=== PATIENT | female | born 1980 | race Caucasian/White ===

== ENCOUNTER → 2016-05-31 | Outpatient (CLI) | payer MEDICARE, OTHER ==
[2016-05-31 07:18] LABS: BASO % 0.6 % (0.0-1.0); EOS # 0.1 K/mm3 (0.0-0.50); EOS % 2.8 % (0.0-3.0); LARGE UNSTAINED CELL # 0.1 K/mm3 (0.0-0.4); LARGE UNSTAINED CELL % 2.7 % (0.0-4.0); LYMPH # 2.3 K/mm3 (1.5-4.5); MEAN CORPUSCULAR HEMOGLOBIN 29.6 pg (27.0-33.0); MEAN CORPUSCULAR VOLUME 87.1 fl (80.0-96.0); MONO # 0.3 K/mm3 (0.0-0.8); MONO % 6.7 % (0.0-5.0); NEUTROPHILS % 42.3 % (36.0-66.0); PLATELET COUNT, AUTOMATED 239 k/mm3 (150-450); RED CELL DISTRIBUTION WIDTH 11.7 % (11.5-14.5); WHITE BLOOD COUNT 4.8 K/mm3 (4.0-10.0)
[2016-05-31 08:06] LABS: ALBUMIN 3.8 GM/DL (3.2-5.2); ALBUMIN/GLOBULIN RATIO 1.27 (1.00-1.93); ALKALINE PHOSPHATASE 56 U/L (45-117); ALT/SGPT 37 U/L (12-78); ANION GAP 11 MEQ/L (8-16); AST/SGOT 17 U/L (15-37); BILIRUBIN,TOTAL 0.5 MG/DL (0.2-1.0); BLOOD UREA NITROGEN 11 MG/DL (7-18); CALCIUM LEVEL 9.2 MG/DL (8.5-10.1); CARBON DIOXIDE LEVEL 21 MEQ/L (21-32); CHLORIDE LEVEL 109 MEQ/L (98-107); CHOLESTEROL LEVEL 172 MG/DL (<200); CREATININE FOR GFR 0.76 MG/DL (0.55-1.02); FREE T4 1.18 NG/DL (0.76-1.46); GLOMERULAR FILTRATION RATE > 60.0 (>60); GLUCOSE, FASTING 90 MG/DL (70-105); SODIUM LEVEL 141 MEQ/L (136-145); TOTAL PROTEIN 6.8 GM/DL (6.4-8.2); TRIGLYCERIDES LEVEL 65 MG/DL (<150)
== END ==
LOC: M LAB 06:28
PROVIDERS: ATTEND Physician Assistant Medical
DX: Z00.00 Encounter for general adult medical examination without abnormal findings (principal); Z83.42 Family history of familial hypercholesterolemia; Z13.220 Encounter for screening for lipoid disorders

== ENCOUNTER → 2018-01-01 | Outpatient (CLI) | payer OTHER ==
[2018-01-01 15:33] LABS: BASO % 0.3 % (0.0-1.0); EOS # 0.1 10^3/uL (0.0-0.50); HEMATOCRIT 34.7 % (36.0-47.0); HEMOGLOBIN 11.5 g/dl (12.0-15.5); IMMATURE GRANULOCYTE % 0.1 % (0-3.0); LYMPH # 1.9 10^3/uL (1.5-4.5); LYMPH % 27.6 % (24.0-44.0); MEAN CORPUSCULAR HEMOGLOBIN 29.6 pg (27.0-33.0); MEAN CORPUSCULAR HGB CONC 33.1 g/dl (32.0-36.5); MEAN CORPUSCULAR VOLUME 89.2 fl (80.0-96.0); MONO # 0.6 10^3/uL (0.0-0.8); MONO % 8.6 % (0.0-5.0); NEUTROPHILS # 4.2 10^3/uL (1.8-7.7); NEUTROPHILS % 62.4 % (36.0-66.0); PLATELET COUNT, AUTOMATED 274 10^3/uL (150-450); RED BLOOD COUNT 3.89 10^6/uL (4.00-5.40); RED CELL DISTRIBUTION WIDTH 11.9 % (11.5-14.5); WHITE BLOOD COUNT 6.8 10^3/uL (4.0-10.0)
[2018-01-01 17:40] LABS: CHLAMYDIA DNA AMPLIFICATION NEGATIVE (NEGATIVE); GC DNA AMPLIFICATION NEGATIVE (NEGATIVE)
[2018-01-02 10:43] LABS: HBsAg Prenatal NEGATIVE (NEGATIVE); HIV 1&2 SCREEN CENTAUR NEGATIVE (NEGATIVE); RUBELLA IgG QUALITATIVE IMMUNE (IMMUNE)
[2018-01-02 10:43] LABS: HEPATITIS C VIRUS ABY INDEX 0.1 INDEX (<0.8)
== END ==
LOC: M LAB 08:12
DX: Z34.81 Encounter for supervision of other normal pregnancy, first trimester (principal); Z3A.08 8 weeks gestation of pregnancy
CPT/HCPCS: 86762

== ENCOUNTER → 2018-02-13 | Outpatient (REF) | payer OTHER | LOC: M LAB REF 13:00 | PROVIDERS: ATTEND Advanced Practice Midwife | DX: Z34.82 Encounter for supervision of other normal pregnancy, second trimester (principal) ==

== ENCOUNTER → 2018-03-05 | Outpatient (CLI) | payer OTHER ==
--- NOTE | 2018-03-06 03:35 | REP ---
Clinical: Anatomical evaluation. Comparison: None . Findings: Examination demonstrates a single live intrauterine in breech presentation. motion is identified by technologist. Placenta is noted anterior fundal and grade grade 1 without evidence for placenta previa or abruption. Amniotic fluid volume is normal. Cervix measures 3.5 cm in length and appears closed. No evidence for nuchal cord. There is suggestion for the possibility of bicornuate uterus with diffuse possibly in the left cornua. Gestational age by LMP 19 weeks 2-day with ANA PAULA is 07/28/2018 . Gestational age by current measurements 18 weeks 6 days with ANA PAULA 2018. FHR equals 163 beats per minute. BPD 4.3 cm 19 weeks 1 day HC 15.7 cm 18 weeks 4 days AC 13.7 cm 19 weeks 1 day FL 3.0 cm 19 weeks 2 days HL 3.1 cm 20 weeks 1 day HC/AC ratio 1.15 Estimated weight 275 grams ( 40th percentile). Anatomical assessment demonstrates normal structures including cranium, choroid plexus, cavum, cerebellum/posterior fossa, facial features, lungs, four-chamber heart, diaphragm, stomach, cord insertion/three-vessel cord, kidneys/bladder, spine, and extremities. Limited evaluation of the facial profile and cardiac ventricular outflow tracts. Impression: 1. Single live intrauterine in breech presentation. 2. Suggestions for bicornuate uterus with fetus in the left cornua. 3. Limited evaluation of the facial profile and cardiac ventricular outflow tracts noted. Remainder of the examination is normal. Electronically Signed by Sumeet Castano MD 03/06/2018 03:27 A
== END ==
LOC: M SMT 09:31
PROVIDERS: ATTEND Obstetrics & Gynecology
DX: Z34.82 Encounter for supervision of other normal pregnancy, second trimester (principal); Z36.89 Encounter for other specified antenatal screening; Z3A.19 19 weeks gestation of pregnancy

== ENCOUNTER → 2018-03-27 | Outpatient (CLI) | payer OTHER ==
--- NOTE | 2018-03-27 10:23 | REP ---
OB ULTRASOUND: Real-time sonographic evaluation of the gravid uterus performed. There is a single living intrauterine gestation, estimated gestational age is 22 weeks 3 days. EDC 07/28/2018. Today's measurements indicate appropriate growth. BPD 50 mm 21 weeks 1 day, 17th percentile HC 190 mm 21 weeks 2 days, 17th percentile AC 174 mm 22 weeks 2 days, 49th percentile FL 38 mm 22 weeks 1 day, 44th percentile HC/AC ratio 1.09 within normal range. Estimated weight 4077 grams, 36th percentile. Cervix closed and measures 4 cm in length. heart rate 160 beats per minute. SEEN/GROSSLY UNREMARKABLE Lateral ventricles Yes Posterior fossa Yes Upper lip No Four-chamber heart Yes LVOT Yes RVOT No Stomach Yes Cord insertion Yes Three vessel cord Yes Kidneys Yes Bladder Yes Spine No position: Breech. Placenta: Anterior and grade I with no previa or abruption. Amniotic fluid: Within normal limits. Please note that the uterus appears to contain a septation raising the possibility of bicornuate or septate uterus. The fetus is on the left side of the uterus. Electronically Signed by Bryant Valles MD 03/27/2018 01:41 P
== END ==
LOC: M SMT 08:01
PROVIDERS: ATTEND Advanced Practice Midwife
DX: O09.512 Supervision of elderly primigravida, second trimester (principal); Z3A.22 22 weeks gestation of pregnancy

== ENCOUNTER → 2018-05-01 | Outpatient (CLI) | payer OTHER ==
[2018-05-01 13:30] LABS: HEMATOCRIT 31.8 % (36.0-47.0); HEMOGLOBIN 10.8 g/dl (12.0-15.5); MEAN CORPUSCULAR HEMOGLOBIN 29.8 pg (27.0-33.0); MEAN CORPUSCULAR VOLUME 87.6 fl (80.0-96.0); PLATELET COUNT, AUTOMATED 293 10^3/uL (150-450); RED BLOOD COUNT 3.63 10^6/uL (4.00-5.40); WHITE BLOOD COUNT 10.6 10^3/uL (4.0-10.0)
== END ==
LOC: M SMT 10:58
PROVIDERS: ATTEND Advanced Practice Midwife
DX: O34.02 Maternal care for unspecified congenital malformation of uterus, second trimester (principal)

== ENCOUNTER 2018-05-09 10:17 | Outpatient (CLI) | payer OTHER ==
[~2018-05-09] VITALS: Ht 162.6 cm; Wt 94.6 kg
[2018-05-09 10:34] VITALS: BP 130/72
[2018-05-09] MEDS ORDERED: DIFL150T PO (11:28)
[2018-05-09] MEDS ORDERED: FERR325T82 PO (11:28)
[2018-05-09] MEDS ORDERED: ZANTTAB PO (11:28)
[2018-05-09] MEDS ORDERED: PRENTAB9 PO (11:28)
[2018-05-09] MEDS ORDERED: MAGNESIUM *L&D* 4 GM/100 ML BAG (40MG/ML) (J3475) As Ordered ONE (12:04)
[2018-05-09] MEDS ORDERED: MAGNESIUM SULFATE 4% INJ 20GM/500ML (40MG/ML) (J3475) As Ordered ONE (12:04)
[2018-05-09] MEDS ORDERED: BETAMETHASONE SOLUSPAN 6MG/ML INJ 5ML (J0702) IM ONE (12:45)
[2018-05-09] MEDS ORDERED: AZITHROMYCIN 250 MG TAB PO ONE (12:45)
[2018-05-09 12:49] VITALS: BP 141/71
[2018-05-09] MEDS ORDERED: ceFAZolin SOD 1 GM in D5W MINI-BAG PLUS 50 ML IV SCH (13:00)
[2018-05-09 13:21] LABS: HEMATOCRIT 31.7 % (36.0-47.0); HEMOGLOBIN 10.9 g/dl (12.0-15.5); MEAN CORPUSCULAR HEMOGLOBIN 30.1 pg (27.0-33.0); MEAN CORPUSCULAR HGB CONC 34.4 g/dl (32.0-36.5); MEAN CORPUSCULAR VOLUME 87.6 fl (80.0-96.0); PLATELET COUNT, AUTOMATED 266 10^3/uL (150-450); RED BLOOD COUNT 3.62 10^6/uL (4.00-5.40); WHITE BLOOD COUNT 10.1 10^3/uL (4.0-10.0)
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
== END 2018-05-09 13:37 | disposition short-term general hospital (02) ==
LOC: M LDO 10:17
PROVIDERS: ATTEND Specialist
DX: O42.913 Preterm premature rupture of membranes, unspecified as to length of time between rupture and onset of labor, third trimester (principal); O32.1XX1 Maternal care for breech presentation, fetus 1; Z88.0 Allergy status to penicillin; Z88.5 Allergy status to narcotic agent; Z3A.28 28 weeks gestation of pregnancy
CPT/HCPCS: 59025; 76815; 85027; 86780; 86850; 86900; 86901; 96372; 96374; G0378; G0463; J0690; J0702

== ENCOUNTER → 2019-09-24 | Outpatient (REF) | payer OTHER ==
[~2019-09-24] MED LIST: DIFL150T PO; FERR325T82 PO; PRENTAB9 PO; ZANT150T40 PO
== END ==
LOC: M LAB REF 10:26
PROVIDERS: ATTEND Nurse Practitioner Family
DX: Z01.419 Encounter for gynecological examination (general) (routine) without abnormal findings (principal)

== ENCOUNTER → 2020-06-17 | Outpatient (CLI) | payer OTHER ==
[~2020-06-17] MED LIST changes: +BUPR450T PO; +BUSP10TA PO; +BUSP1TAB PO; +CETI-36 PO; +D3 M5000 PO; +SPIR100T3 PO; +VALA500T5 PO; +[UNRECOGNIZED DRUG - OTHER] PO
== END ==
LOC: M LABSMTC 10:19
PROVIDERS: ATTEND Anesthesiology
DX: Z01.818 Encounter for other preprocedural examination (principal); Z11.52 Encounter for screening for COVID-19

== ENCOUNTER 2020-06-22 10:21 | Day surgery (SDC) | payer OTHER ==
[~2020-06-22] VITALS: Ht 162.6 cm; Wt 75.2 kg
[~2020-06-22 10:21] MED LIST changes: +NS 1,000 ML IV ONE; +SEVOFLURANE INHAL SOLN 250 ML BTL As Ordered ONE
[2020-06-22] MEDS ORDERED: LIDOCAINE 2% 100MG/5ML SDV (FOR ANES.) As Ordered ONE (11:40)
[2020-06-22] MEDS ORDERED: propofoL 200 MG/20 ML VIAL As Ordered ONE (11:40)
--- NOTE | 2020-06-22 11:42 | ROOR ---
Patient Name: Christen Gaffney Procedure Date: 06/22/2020 11:21 AM Date of : 1980 Age: 40 Room: [facility] Gender: Female Note Status: Finalized Procedure: Colonoscopy Indications: Colon cancer screening in patient at increased risk: Family history of colorectal cancer in multiple 2nd degree relatives Providers: DO Rock Hogan MD: Marium Amador NP Requesting Provider: Medicines: Propofol per Anesthesia Complications: No immediate complications. Procedure: Pre-Anesthesia Assessment: - Prior to the procedure, a History and Physical was performed, and patient medications and allergies were reviewed. The patient is competent. The risks and benefits of the procedure and the sedation options and risks were discussed with the patient. All questions were answered and informed consent was obtained. Patient identification and proposed procedure were verified by the physician, the nurse, the cosmetic consultant and the greenhouse technician in the endoscopy suite. Mental Status Examination: alert and oriented. Airway Examination: normal oropharyngeal airway and neck mobility. Respiratory Examination: clear to auscultation. CV Examination: normal. Prophylactic Antibiotics: The patient does not require prophylactic antibiotics. Prior Anticoagulants: The patient has taken no previous anticoagulant or antiplatelet agents. ASA Grade Assessment: II - A patient with mild systemic disease. After reviewing the risks and benefits, the patient was deemed in satisfactory condition to undergo the procedure. The anesthesia plan was to use monitored anesthesia care (MAC). Immediately prior to administration of medications, the patient was re-assessed for adequacy to receive sedatives. The heart rate, respiratory rate, oxygen saturations, blood pressure, adequacy of pulmonary ventilation, and response to care were monitored throughout the procedure. The physical status of the patient was re-assessed after the procedure. The Colonoscope was introduced through the anus and advanced to the cecum, identified by appendiceal orifice and ileocecal valve. The colonoscopy was performed without difficulty. The patient tolerated the procedure well. Findings: Non-bleeding internal hemorrhoids were found during retroflexion. The hemorrhoids were Grade I (internal hemorrhoids that do not prolapse). A less than 5 mm polyp was found in the transverse colon. The polyp was hyperplastic. The polyp was removed with a jumbo cold forceps. Resection and retrieval were complete. Estimated blood loss was minimal. Impression: - Non-bleeding internal hemorrhoids. - One less than 5 mm polyp in the transverse colon, removed with a jumbo cold forceps. Resected and retrieved. Recommendation: - Patient has a contact number available for emergencies. The signs and symptoms of potential delayed complications were discussed with the patient. Return to normal activities tomorrow. Written discharge instructions were provided to the patient. - Await pathology results. - Repeat colonoscopy in 5-10 years for surveillance based on pathology results. - Return to my office at appointment to be scheduled. Procedure Code(s): --- Professional --- 90189, Colonoscopy, flexible; with biopsy, single or multiple Diagnosis Code(s): --- Professional --- Z80.0, Family history of malignant neoplasm of digestive organs K64.0, First degree hemorrhoids K63.5, Polyp of colon CPT copyright 2019 [employer]. All rights reserved. The codes documented in this report are preliminary and upon medical records coder review may be revised to meet current compliance requirements. Bryant Germain DO 06/22/2020 11:41:48 AM Electronically signed by Bryant Germain DO Number of Addenda: 0 Note Initiated On: 06/22/2020 11:21 AM Estimated Blood Loss: Estimated blood loss: none.
[2020-06-22 12:05] VITALS: BP 143/76
== END 2020-06-22 12:19 | disposition home or self-care (01) ==
LOC: M OPP 10:21
PROVIDERS: ATTEND Surgery
DX: Z12.11 Encounter for screening for malignant neoplasm of colon (principal); Z80.0 Family history of malignant neoplasm of digestive organs; K63.5 Polyp of colon; K64.0 First degree hemorrhoids; Z88.0 Allergy status to penicillin; Z88.5 Allergy status to narcotic agent

== ENCOUNTER → 2020-10-25 | Outpatient (CLI) | payer OTHER ==
[~2020-10-25] MED LIST changes: -NS 1,000 ML IV ONE; -SEVOFLURANE INHAL SOLN 250 ML BTL As Ordered ONE
[2020-10-25 08:59] LABS: ALBUMIN 3.5 GM/DL (3.2-5.2); ALT/SGPT 22 U/L (12-78); BILIRUBIN,TOTAL 0.3 MG/DL (0.2-1.0); BLOOD UREA NITROGEN 10 MG/DL (7-18); CALCIUM LEVEL 8.8 MG/DL (8.5-10.1); CARBON DIOXIDE LEVEL 25 MEQ/L (21-32); CHLORIDE LEVEL 109 MEQ/L (98-107); CHOLESTEROL LEVEL 182 MG/DL (<200); CHOLESTEROL RISK RATIO 3.137 (<5); CREATININE FOR GFR 0.75 MG/DL (0.55-1.30); FREE T4 1.09 NG/DL (0.76-1.46); GLOMERULAR FILTRATION RATE > 60.0 (>58); GLUCOSE, FASTING 82 MG/DL (70-100); HDL CHOLESTEROL 58 MG/DL (>40); LDL CHOLESTEROL 106 MG/DL (<100); NON-HDL-C 124 MG/DL; POTASSIUM SERUM 4.3 MEQ/L (3.5-5.1); SODIUM LEVEL 139 MEQ/L (136-145); TOTAL PROTEIN 6.7 GM/DL (6.4-8.2); TRIGLYCERIDES LEVEL 91 MG/DL (<150)
== END ==
LOC: M LAB 07:34
PROVIDERS: ATTEND Nurse Practitioner Family
DX: Z00.00 Encounter for general adult medical examination without abnormal findings (principal)

== ENCOUNTER → 2020-10-30 | Outpatient (REF) | payer OTHER | LOC: M LAB REF 19:11 | PROVIDERS: ATTEND Nurse Practitioner Family | DX: Z01.419 Encounter for gynecological examination (general) (routine) without abnormal findings (principal) ==

== ENCOUNTER → 2021-11-12 | Outpatient (REF) | payer OTHER | LOC: M LAB REF 17:46 | PROVIDERS: ATTEND Nurse Practitioner Family | DX: Z01.419 Encounter for gynecological examination (general) (routine) without abnormal findings (principal); Z12.4 Encounter for screening for malignant neoplasm of cervix ==

== ENCOUNTER → 2021-11-21 | Outpatient (CLI) | payer OTHER | LOC: M SOG 07:57 | PROVIDERS: ATTEND Orthopaedic Surgery | DX: M25.532 Pain in left wrist (principal); M25.531 Pain in right wrist ==

== ENCOUNTER → 2022-01-01 | Outpatient (CLI) | payer OTHER ==
[~2022-01-01] MED LIST changes: +ADDE10CA3 PO; +B-12100010 PO; +VITA500075 PO
== END ==
LOC: M LABSMTC 09:07
PROVIDERS: ATTEND Anesthesiology
DX: Z01.818 Encounter for other preprocedural examination (principal); Z11.52 Encounter for screening for COVID-19

== ENCOUNTER 2022-01-04 06:17 | Day surgery (SDC) | payer OTHER ==
[~2022-01-04] VITALS: Ht 162.6 cm; Wt 78.4 kg
[~2022-01-04 06:17] MED LIST changes: +ceFAZolin SOD 2 GM in IV 1 EA IV ONE
[2022-01-04] MEDS ORDERED: LR 1,000 ML IV SCH (06:45)
[2022-01-04] MEDS ORDERED: BUPIVACAINE/EPIN 0.5% 30 ML VIAL As Ordered ONE (07:16)
[2022-01-04] MEDS ORDERED: SCOPOLAMINE 1MG TRANSDERMAL PATCH TOP ONE (07:20)
[2022-01-04] MEDS ORDERED: KETOROLAC 60MG 2ML VIAL As Ordered ONE (07:22)
[2022-01-04] MEDS ORDERED: LIDOCAINE 2% 100MG/5ML SDV (FOR ANES.) As Ordered ONE (07:22)
[2022-01-04] MEDS ORDERED: propofoL 200 MG/20 ML VIAL As Ordered ONE ×2 (07:22→08:18)
[2022-01-04] MEDS ORDERED: MIDAZOLAM INJ 2MG/2ML VIAL (J2250 PER 1MG) As Ordered ONE (07:22)
[2022-01-04] MEDS ORDERED: ONDANSETRON 4MG 2ML VIAL As Ordered ONE (07:22)
[2022-01-04] MEDS ORDERED: dexameTHASONE 4 MG/ML 1ML VIAL (J1100 PER 1MG) As Ordered ONE (07:22)
[2022-01-04] MEDS ORDERED: fentaNYL 100 MCG/2 ML INJECTION As Ordered ONE (07:22)
[2022-01-04 08:40] VITALS: BP 114/58
== END 2022-01-04 08:47 | disposition home or self-care (01) ==
LOC: M SDC 06:17
PROVIDERS: ATTEND Orthopaedic Surgery
DX: G56.01 Carpal tunnel syndrome, right upper limb (principal); F90.9 Attention-deficit hyperactivity disorder, unspecified type; J45.909 Unspecified asthma, uncomplicated; F41.9 Anxiety disorder, unspecified; M51.9 Unspecified thoracic, thoracolumbar and lumbosacral intervertebral disc disorder; Z87.891 Personal history of nicotine dependence; Z79.899 Other long term (current) drug therapy; Z88.0 Allergy status to penicillin; Z88.5 Allergy status to narcotic agent
CPT/HCPCS: 29848; 81025; J0690; J1100; J1885; J2250; J2405; J3010

== ENCOUNTER → 2024-01-01 | Outpatient (CLI) | payer OTHER ==
[~2024-01-01] MED LIST changes: -BUPR450T PO; +BUPR450T4 PO; -ceFAZolin SOD 2 GM in IV 1 EA IV ONE
[2024-01-01 08:58] LABS: BASO % 0.4 % (0.0-1.0); EOS # 0.2 10^3/uL (0.0-0.5); EOS % 2.3 % (0.0-3.0); HEMATOCRIT 39.3 % (36.0-47.0); HEMOGLOBIN 13.3 g/dl (12.0-15.5); LYMPH # 2.6 10^3/uL (1.5-5.0); LYMPH % 35.2 % (24.0-44.0); MEAN CORPUSCULAR HEMOGLOBIN 29.4 pg (27.0-33.0); MEAN CORPUSCULAR HGB CONC 33.8 g/dl (32.0-36.5); MEAN CORPUSCULAR VOLUME 86.8 fl (80.0-96.0); MONO # 0.6 10^3/uL (0.0-0.8); MONO % 8.2 % (2.0-8.0); NEUTROPHILS % 53.8 % (36.0-66.0); PLATELET COUNT, AUTOMATED 277 10^3/uL (150-450); RED BLOOD COUNT 4.53 10^6/uL (4.00-5.40); WHITE BLOOD COUNT 7.5 10^3/uL (4.0-10.0)
[2024-01-01 09:29] LABS: ALBUMIN 3.9 G/DL (3.2-5.2); ALKALINE PHOSPHATASE 69 U/L (35-104); ALT/SGPT 26 U/L (7.0-40); AST/SGOT 11 U/L (<34); BILIRUBIN,TOTAL 0.6 MG/DL (0.3-1.2); BLOOD UREA NITROGEN 11 MG/DL (9-23); CALCIUM LEVEL 9.7 MG/DL (8.5-10.1); CARBON DIOXIDE LEVEL 26 MMOL/L (20-31); CHLORIDE LEVEL 106 MMOL/L (98-107); CHOLESTEROL LEVEL 195 MG/DL (<200); CHOLESTEROL RISK RATIO 3.42 (<5); CREATININE FOR GFR 0.65 MG/DL (0.55-1.30); GLOMERULAR FILTRATION RATE > 60.0 (>58); GLUCOSE, FASTING 87 MG/DL (60-100); LDL CHOLESTEROL 119.4 MG/DL (<100); POTASSIUM SERUM 4.3 MMOL/L (3.5-5.1); SODIUM LEVEL 137 MMOL/L (136-145); TOTAL PROTEIN 7.2 G/DL (5.7-8.2); TRIGLYCERIDES LEVEL 93 MG/DL (<150)
[2024-01-01 09:30] LABS: FREE T4 1.06 NG/DL (0.89-1.76); THYROID STIMULATING HORMONE 2.324 uIU/ML (0.55-4.78)
[2024-01-01 09:31] LABS: TOTAL 25(OH) VITAMIN D 41.5 NG/ML (20.0-100.0)
== END ==
LOC: M LAB 07:36
PROVIDERS: ATTEND Nurse Practitioner Family
DX: Z00.00 Encounter for general adult medical examination without abnormal findings (principal)

== ENCOUNTER → 2024-11-09 | Outpatient (CLI) | payer OTHER ==
[~2024-11-09] MED LIST changes: +CHOL50006 PO; -D3 M5000 PO
== END ==
LOC: M PLAIMG 14:57
PROVIDERS: ATTEND Nurse Practitioner Family
DX: M79.672 Pain in left foot (principal)

== ENCOUNTER → 2024-11-14 | Outpatient (CLI) | payer OTHER ==
[2024-11-14 10:33] LABS: ESTRADIOL 617.6 PG/ML
[2024-11-14 10:34] LABS: LUTEINIZING HORMONE 4.3 mIU/ML
[2024-11-14 10:37] LABS: PROGESTERONE 0.83 NG/ML
== END ==
LOC: M LAB 08:35
PROVIDERS: ATTEND Nurse Practitioner Family
DX: N95.8 Other specified menopausal and perimenopausal disorders (principal)

== ENCOUNTER 2024-12-02 20:01 | Emergency (ER) | payer OTHER ==
[~2024-12-02] VITALS: Ht 162.6 cm; Wt 90.0 kg
[2024-12-02 20:08] VITALS: BP 127/78; TEMP 97.4; O2SAT 100
== END 2024-12-02 21:56 | disposition left against medical advice (07) ==
LOC: M ED 20:01
DX: Z53.21 Procedure and treatment not carried out due to patient leaving prior to being seen by health care provider (principal)

== ENCOUNTER → 2024-12-16 | Outpatient (CLI) | payer OTHER ==
[2024-12-16 13:18] LABS: PROGESTERONE 3.22 NG/ML
[2024-12-16 13:19] LABS: LUTEINIZING HORMONE 1.3 mIU/ML
[2024-12-16 13:20] LABS: ESTRADIOL 31.8 PG/ML
== END ==
LOC: M WUC 08:34
PROVIDERS: ATTEND Nurse Practitioner Family
DX: N95.8 Other specified menopausal and perimenopausal disorders (principal)

== ENCOUNTER → 2025-01-04 | Outpatient (REF) | payer BC, OTHER ==
[2025-01-06 17:27] LABS: HPV APTIMA Not Detected (Not Detected)
== END ==
LOC: M LAB REF 17:38
PROVIDERS: ATTEND Nurse Practitioner Family
DX: Z12.4 Encounter for screening for malignant neoplasm of cervix (principal)
CPT/HCPCS: 87624; G0123